=== PATIENT | male | born 1945 | race Caucasian/White ===

== ENCOUNTER 2020-12-13 13:38 | Inpatient (IN) | payer BC ==
[~2020-12-13] VITALS: Ht 165.1 cm; Wt 49.0 kg
[2020-12-13 15:00] LABS: HEMOGLOBIN 14.5 gm/dl (14.0-17.5); RED BLOOD COUNT 4.54 M/UL (4.20-5.50); WHITE BLOOD COUNT 6.9 K/UL (4.5-11.0)
[2020-12-13 15:54] LABS: BUN/CREATININE RATIO 17 (0-10)
[2020-12-14 01:56] LABS: HEMOGLOBIN 14.2 gm/dl (14.0-17.5); RED BLOOD COUNT 4.48 M/UL (4.20-5.50); WHITE BLOOD COUNT 5.9 K/UL (4.5-11.0)
[2020-12-14 03:05] LABS: BUN/CREATININE RATIO 15 (0-10)
[2020-12-14] MEDS ORDERED: VITAMIN D3125 MCG PO (11:52)
[2020-12-14] MEDS ORDERED: C-10001000 MG PO (11:52)
[2020-12-14] MEDS ORDERED: VITAMIN E400 UNI4 PO (11:53)
[2020-12-14] MEDS ORDERED: MULTIVITAMIN1 EACH PO (11:57)
[2020-12-14] MEDS ORDERED: VITAMIN A10000 UNI3 PO (11:57)
[2020-12-14] MEDS ORDERED: CALCIUM500 MG PO (11:58)
[2020-12-14] MEDS ORDERED: GINGER250 MG PO (20:14)
[2020-12-15 03:04] LABS: HEMOGLOBIN 13.4 gm/dl (14.0-17.5); RED BLOOD COUNT 4.28 M/UL (4.20-5.50)
[2020-12-15 03:17] LABS: WHITE BLOOD COUNT 8.8 K/UL (4.5-11.0)
[2020-12-15 03:35] LABS: BUN/CREATININE RATIO 22 (0-10)
[2020-12-15] MEDS ORDERED: DOXYCYCLINE HY100 MG PO (10:50)
[2020-12-15] MEDS ORDERED: OMNICEF 300 MG300 MG PO (10:50)
[2020-12-15] MEDS ORDERED: ASPIRIN 325MG325 MG PO (10:52)
[2020-12-15] MEDS ORDERED: LOPRESSOR 25 MG25 MG PO (10:52)
[2020-12-15] MEDS ORDERED: DECADRON6 MG PO (10:52)
== END 2020-12-15 12:56 | disposition home or self-care (01) | DRG 177 ==
LOC: EDSEX 13:38 → ER1 13:38 → CDU 19:07 → PROG CARE 12-14 19:09
PROVIDERS: Physician Assistant; ADMIT Internal Medicine
PROC: 8E0ZXY6 Isolation (ICD-10-PCS; principal; 2020-12-13)
PROC: XW033E5 Introduction of Remdesivir Anti-infective into Peripheral Vein, Percutaneous Approach, New Technology Group 5 (ICD-10-PCS; 2020-12-13)
PROC: 3E0333Z Introduction of Anti-inflammatory into Peripheral Vein, Percutaneous Approach (ICD-10-PCS; 2020-12-13)
DX: U07.1 COVID-19 (principal); J15.9 Unspecified bacterial pneumonia; J12.82 Pneumonia due to coronavirus disease 2019; I48.92 Unspecified atrial flutter; I47.1 Supraventricular tachycardia; I27.20 Pulmonary hypertension, unspecified; I08.0 Rheumatic disorders of both mitral and aortic valves; R55 Syncope and collapse; R73.9 Hyperglycemia, unspecified; R74.8 Abnormal levels of other serum enzymes; Z85.46 Personal history of malignant neoplasm of prostate; Z90.89 Acquired absence of other organs; Z79.899 Other long term (current) drug therapy; Z79.82 Long term (current) use of aspirin
CPT/HCPCS: ECHO; 36415; 71045; 80053; 82550; 82553; 83036; 83605; 83735; 83874; 84439; 84443; 84484; 85025; 85027; 85379; 85610; 87040; 93005; 93306; 94640; 94664; 94760; 96374; 99285; J0696; J1100; J1160; J1650; J7030; U0002

== ENCOUNTER → 2021-02-22 | Outpatient (CLI) | payer BC ==
[~2021-02-22] MED LIST: ASPIRIN 325MG325 MG PO; C-10001000 MG PO; CALCIUM500 MG PO; DECADRON6 MG PO; DOXYCYCLINE HY100 MG PO; GINGER250 MG PO; LOPRESSOR 25 MG25 MG PO; MULTIVITAMIN1 EACH PO; OMNICEF 300 MG300 MG PO; VITAMIN A10000 UNI3 PO; VITAMIN D3125 MCG PO; VITAMIN E400 UNI4 PO
== END ==
LOC: US 02-14 09:30
DX: R79.89 Other specified abnormal findings of blood chemistry (principal); N27.0 Small kidney, unilateral
CPT/HCPCS: 76700

== ENCOUNTER 2021-09-14 16:22 | Emergency (ER) | payer BC | END 2021-09-14 18:05 | disposition home or self-care (01) | LOC: ER1 16:22 | DX: T18.128A Food in esophagus causing other injury, initial encounter (principal); Z85.46 Personal history of malignant neoplasm of prostate | CPT/HCPCS: 99283 ==